=== PATIENT | female | born 1970 | race Caucasian/White ===

== ENCOUNTER 2017-11-29 16:05 | Observation (INO) | payer MEDICARE, MEDICAID ==
[2017-11-29 16:14] VITALS: TEMP 98.6
--- NOTE | 2017-11-29 16:38 | ED PDOC ---
HPI: Hypertension/Hypotension Time Seen by Provider: 11/29/17 16:18 Chief Complaint (Nursing): High Blood Pressure Chief Complaint (Provider): Elevated BP History Per: Patient History/Exam Limitations: no limitations Additional Complaint(s): Pt was sent by Sheet Folder for elevated BP (278/140) at office, associated with WRIGHT and nausea. Pt reports bilateral WRIGHT X 3 weeks, now constant, not relieved with OTC WRIGHT meds. Pt take Metoprolol 100 mg PO daily for HTN, noncompliant with Enalapril. Denies paresthesias, weakness, visual changes, neck stiffness, CP, SOB, vomiting, abdominal pain. Against Medical Advice - AMA Patient Left Against Medical Advice: The patient declines admission to the hospital and wishes to leave the Emergency Department. This action is against my medical advice. This decision was made with informed refusal. The patient was told that admission to the hospital is necessary. Explanation of the reasons why were discussed. The risks of leaving were explained to the patient and include, but are not limited to, worsening of known or currently unknown conditions, permanent disability and from undiagnosed or untreated conditions. The patient has the capacity to make this informed decision and understands my explanation of the current medical problem and risks of leaving. The patient voluntarily accepts these risks and signed an AMA form documenting our conversation. The patient was given the opportunity to ask questions and reconsider. The patient was encouraged to return to the Emergency Department at any time for further care. Past Medical History Reviewed: Nursing Documentation, Vital Signs Vital Signs: Last Vital Signs Temp 98.6 F 11/29/17 16:07 Pulse 74 11/29/17 16:07 Resp 18 11/29/17 16:07 BP 238/135 H 11/29/17 16:07 Pulse Ox 98 11/29/17 16:07 - Medical History PMH: Anxiety, Depression, Diabetes, HTN, Hypercholesterolemia, Chronic Kidney Disease, Schizophrenia - Surgical History Surgical History: Tonsillectomy - Family History Family History: States: Unknown Family Hx - Social History Current smoker - smoking cessation education provided: No Alcohol: None - Immunization History Hx Tetanus Toxoid Vaccination: No Hx Influenza Vaccination: Yes Hx Pneumococcal Vaccination: No - Home Medications Home Medications: Ambulatory Orders Medication Instructions Recorded ARIPiprazole [Abilify] 2 mg PO DAILY 11/23/17 Alprazolam 0.5 mg PO BID 11/23/17 Benztropine Mesylate 1 mg PO DAILY 11/23/17 Olanzapine [Zyprexa] 15 mg PO HS 11/23/17 Sertraline HCl 100 mg PO DAILY 11/23/17 Enalapril Maleate [Vasotec] 20 mg PO DAILY 11/29/17 Metoprolol Succinate XL [Toprol XL] 100 mg PO DAILY 11/29/17 hydrALAZINE [Apresoline] 25 mg PO Q8 11/29/17 - Allergies Allergies/Adverse Reactions: Allergies Allergy/AdvReac Type Severity Reaction Status Date / Time tetracycline Allergy SHORTNESS Verified 11/23/17 19:58 OF BREATH Review of Systems Constitutional: Negative for: Fever, Chills Eyes: Negative for: Pain, Vision Change Cardiovascular: Negative for: Chest Pain, Palpitations Respiratory: Negative for: Cough, Shortness of Breath Gastrointestinal: Positive for: Nausea. Negative for: Vomiting, Abdominal Pain , Diarrhea Genitourinary Female: Negative for: Dysuria, Hematuria Musculoskeletal: Negative for: Neck Pain, Back Pain Skin: Negative for: Rash, Lesions Neurological: Positive for: Headache. Negative for: Weakness, Numbness, Incoordination, Change in Speech, Confusion, Seizures, Altered Mental Status, Dizziness Physical Exam - Reviewed Nursing Documentation Reviewed: Yes Vital Signs Reviewed: Yes - Physical Exam Appears: Positive for: Well, No Acute Distress Head Exam: Positive for: ATRAUMATIC, NORMAL INSPECTION Skin: Positive for: Normal Color, Warm, Dry Eye Exam: Positive for: Normal appearance, EOMI, PERRL Neck: Positive for: Normal, Painless ROM, Supple Cardiovascular/Chest: Positive for: Regular Rate, Rhythm Respiratory: Positive for: Normal Breath Sounds Gastrointestinal/Abdominal: Positive for: Normal Exam, Bowel Sounds, Soft. Negative for: Tenderness Back: Positive for: Normal Inspection. Negative for: L CVA Tenderness, R CVA Tenderness Extremity: Positive for: Normal ROM. Negative for: Swelling Neurologic/Psych: Positive for: Alert, director of content marketing II-XII, Oriented. Negative for: Motor/Sensory Deficits, Aphasia, Facial Droop - Laboratory Results Result Diagrams: 11/29/17 16:41 11/29/17 16:41 - ECG Interpretation Of ECG: NSR @ 61, LVH, no ST-T changes. O2 Sat by Pulse Oximetry: 98 Pulse Ox Interpretation: Normal - Progress Re-evaluation Time: 20:30 Condition: Improving,but remains with symptoms Medical Decision Making Medical Decision Makin yoi female with elevated BP and headache. - labs - EKG - CXR - CT head - Morphine Accession No. : [id number] Patient Name / ID : WILDER ALVAREZ / [id number] Exam Date : 11/29/2017 17:36:35 ( Approved ) Study Comment : Sex / Age : F / 47Y Creator : alla garcia Dictator : Viraj Castillo MD Mac Artist : Shampoo Technician : Viraj Castillo MD Approver2 : Report Date : 11/29/2017 17:56:56 My Comment : Date of service: 11/29/2017 HISTORY: Elevated BP COMPARISON: 11/28/2013 TECHNIQUE: Chest PA and lateral FINDINGS: LUNGS: No active pulmonary disease. PLEURA: No significant pleural effusion identified. No pneumothorax apparent. CARDIOVASCULAR: No radiographic findings to suggest acute or significant cardiovascular disease. OSSEOUS STRUCTURES: No significant abnormalities. VISUALIZED UPPER ABDOMEN: Normal. OTHER FINDINGS: None. IMPRESSION: No active disease. No significant interval change compared to the prior examination(s). Accession No. : [id number] Patient Name / ID : WILDER ALVAREZ / [id number] Exam Date : 11/29/2017 18:00:01 ( Approved ) Study Comment : Sex / Age : F / 47Y Creator : Viraj Castillo MD Dictator : Viraj Castillo MD Mac Artist : Shampoo Technician : Viraj Castillo MD Approver2 : Report Date : 11/29/2017 18:21:38 My Comment : Date of service: 11/29/2017 PROCEDURE: CT HEAD WITHOUT CONTRAST. HISTORY: WRIGHT COMPARISON: None available. TECHNIQUE: Axial computed tomography images were obtained through the head/brain without intravenous contrast. Coronal and sagittal reconstructed images. Nvn Radiation dose: Total exam DLP = 817.72 mGy-cm. This CT exam was performed using one or more of the following dose reduction techniques: Automated exposure control, adjustment of the mA and/or kV according to patient size, and/or use of iterative reconstruction technique. FINDINGS: HEMORRHAGE: No intracranial hemorrhage. BRAIN: No mass effect or edema. No atrophy or chronic microvascular ischemic changes. VENTRICLES: Unremarkable. No hydrocephalus. CALVARIUM: Unremarkable. PARANASAL SINUSES: Unremarkable as visualized. No significant inflammatory changes. MASTOID AIR CELLS: Unremarkable as visualized. No inflammatory changes. OTHER FINDINGS: None. IMPRESSION: No acute intracranial abnormalities. No significant findings to account for the clinical presentation. 2045 --Patient is signing out against medical advice because she reports needing to go home to her child. Disposition - Clinical Impression Clinical Impression: Uncontrolled hypertension - Patient ED Disposition Is Patient to be Admitted: No - Disposition Disposition: Against Medical Advice Disposition Time: 20:45 Condition: UNKNOWN
[2017-11-29 17:18] LABS: ALB/GLOB RATIO 1.2 (1.0-2.1); ALBUMIN 3.8 g/dL (3.5-5.0); CALCIUM 9.5 mg/dL (8.4-10.2)
[2017-11-29 17:20] LABS: BASO # 0.1 K/uL (0.0-0.2); BASO % 0.7 % (0.0-2.0); EOS # 0.3 K/uL (0.0-0.7); EOS % 3.1 % (0.0-4.0); HEMOGLOBIN 13.1 g/dL (12.0-16.0); LYMPH # 1.8 K/uL (1.0-4.3); LYMPH % 21.6 % (20.0-40.0); MEAN CELL VOLUME 82.8 fl (81.0-99.0); MEAN CORPUSCULAR HEMOGLOBIN 28.2 pg (27.0-31.0); MEAN CORPUSCULAR HGB CONC 34.1 g/dL (33.0-37.0); MEAN PLATELET VOLUME 8.3 fl (7.2-11.7); MONO # 0.5 K/uL (0.0-0.8); MONO % 5.6 % (0.0-10.0); NEUT # 5.7 K/uL (1.8-7.0); NRBC % 0.1 % (0.0-0.0); RBC 4.65 Mil/uL (3.80-5.20); RED CELL DISTRIBUTION WIDTH 15.3 % (11.5-14.5); WHITE BLOOD COUNT 8.3 K/uL (4.8-10.8)
[2017-11-29 17:26] LABS: INR 0.8 (0.9-1.2); PARTIAL THROMBOPLASTIN TIME 33.1 Seconds (25.6-37.1); PROTHROMBIN TIME 8.7 Seconds (9.8-13.1)
[2017-11-29 18:03] LABS: SQUAMOUS EPITHIAL < 1 /hpf (0-5); URINE BILIRUBIN NEGATIVE (NEGATIVE); URINE BLOOD NEGATIVE (NEGATIVE); URINE CLARITY SLIGHTY-CLOUDY (Clear); URINE COLOR STRAW (YELLOW); URINE GLUCOSE (UA) 50 mg/dL (Normal); URINE LEUKOCYTE ESTERASE NEG Leu/uL (Negative); URINE UROBILINOGEN 0.2-1.0 mg/dL (0.2-1.0)
--- NOTE | 2017-11-29 18:13 | RAD ---
Date of service: 11/29/2017 HISTORY: Elevated BP COMPARISON: 11/28/2013 TECHNIQUE: Chest PA and lateral FINDINGS: LUNGS: No active pulmonary disease. PLEURA: No significant pleural effusion identified. No pneumothorax apparent. CARDIOVASCULAR: No radiographic findings to suggest acute or significant cardiovascular disease. OSSEOUS STRUCTURES: No significant abnormalities. VISUALIZED UPPER ABDOMEN: Normal. OTHER FINDINGS: None. IMPRESSION: No active disease. No significant interval change compared to the prior examination(s).
[2017-11-29 18:16] LABS: URINE PROTEIN >=300 mg/dL (NEGATIVE)
--- NOTE | 2017-11-29 18:23 | CT ---
Date of service: 11/29/2017 PROCEDURE: CT HEAD WITHOUT CONTRAST. HISTORY: WRIGHT COMPARISON: None available. TECHNIQUE: Axial computed tomography images were obtained through the head/brain without intravenous contrast. Coronal and sagittal reconstructed images. Nmn Radiation dose: Total exam DLP = 817.72 mGy-cm. This CT exam was performed using one or more of the following dose reduction techniques: Automated exposure control, adjustment of the mA and/or kV according to patient size, and/or use of iterative reconstruction technique. FINDINGS: HEMORRHAGE: No intracranial hemorrhage. BRAIN: No mass effect or edema. No atrophy or chronic microvascular ischemic changes. VENTRICLES: Unremarkable. No hydrocephalus. CALVARIUM: Unremarkable. PARANASAL SINUSES: Unremarkable as visualized. No significant inflammatory changes. MASTOID AIR CELLS: Unremarkable as visualized. No inflammatory changes. OTHER FINDINGS: None. IMPRESSION: No acute intracranial abnormalities. No significant findings to account for the clinical presentation.
[2017-11-29 20:06] VITALS: BP 186/90; PULSE 52; RESP 16
[2017-11-29 20:50] VITALS: O2SAT 98
--- NOTE | 2017-11-30 09:16 | CARD ---
APPROVED REPORT Date of service: 11/29/2017 EKG Measurement Heart [id number] [id number] [id number] <Conclusion> Normal sinus rhythm Voltage criteria for left ventricular hypertrophy Abnormal ECG
== END 2017-11-29 21:33 | disposition left against medical advice (07) ==
LOC: H.ER 16:05 → H.ERHOLD 20:41
PROVIDERS: ADMIT Internal Medicine; ATTEND Internal Medicine
DX: I12.9 Hypertensive chronic kidney disease with stage 1 through stage 4 chronic kidney disease, or unspecified chronic kidney disease (principal); R51 Headache; N18.9 Chronic kidney disease, unspecified; E11.22 Type 2 diabetes mellitus with diabetic chronic kidney disease; E78.00 Pure hypercholesterolemia, unspecified; F20.9 Schizophrenia, unspecified; F41.9 Anxiety disorder, unspecified; Z91.19 Patient's noncompliance with other medical treatment and regimen; Z79.899 Other long term (current) drug therapy
CPT/HCPCS: 70450; 71046; 80053; 81003; 81025; 82948; 85025; 85610; 85730; 93005; 96374; 99285; G0378; J2270

== ENCOUNTER 2018-01-26 07:56 | Emergency (ER) | payer MEDICARE, MEDICAID ==
[2018-01-26 08:00] VITALS: BMI 26.5
[2018-01-26 08:02] VITALS: O2SAT 99
[2018-01-26 09:23] LABS: BASO # 0.1 K/uL (0.0-0.2); BASO % 1.1 % (0.0-2.0); EOS # 0.1 K/uL (0.0-0.7); EOS % 1.7 % (0.0-4.0); HEMOGLOBIN 11.4 g/dL (12.0-16.0); LYMPH # 1.5 K/uL (1.0-4.3); LYMPH % 17.8 % (20.0-40.0); MEAN CELL VOLUME 83.8 fl (81.0-99.0); MEAN CORPUSCULAR HEMOGLOBIN 28.9 pg (27.0-31.0); MEAN CORPUSCULAR HGB CONC 34.5 g/dL (33.0-37.0); MEAN PLATELET VOLUME 8.5 fl (7.2-11.7); MONO # 0.5 K/uL (0.0-0.8); NEUT # 6.3 K/uL (1.8-7.0); NEUT % 73.4 % (50.0-75.0); NRBC % 0.1 % (0.0-0.0); RBC 3.95 Mil/uL (3.80-5.20); RED CELL DISTRIBUTION WIDTH 14.9 % (11.5-14.5); WHITE BLOOD COUNT 8.6 K/uL (4.8-10.8)
--- NOTE | 2018-01-26 09:25 | RAD ---
Date of service: 01/26/2018 HISTORY: pleuritic pain COMPARISON: 11/29/2017 TECHNIQUE: Chest PA and lateral FINDINGS: LUNGS: No interval consolidation. PLEURA: Although lung volume is slightly less now than before the costophrenic angles appear less deep bilaterally. Small bilateral pleural effusions are possible. Clinical history noted. No pneumothorax seen CARDIOVASCULAR: Top-normal heart size. Mild tortuosity of thoracic aorta both findings stable appearing OSSEOUS STRUCTURES: No significant abnormalities. VISUALIZED UPPER ABDOMEN: Normal. OTHER FINDINGS: None. IMPRESSION: Interval minimal bilateral pleural effusions-possible.
--- NOTE | 2018-01-26 09:40 | ED PDOC ---
HPI: Chest Pain Time Seen by Provider: 01/26/18 08:15 Chief Complaint (Nursing): Chest Pain Additional Complaint(s): 47 year old female, with a past medical history of high triglycerides, high cho lesterol, diabetes, hypertension, migraines, anxiety, depression, schizophrenia, and chronic kidney disease (stage 3), presenting for evaluation of chest pain x1 day. Patient describes pain as pressure-like and exacerbated by movement and inspiration. Patient reports taking Aspirin prior to arrival with some relief of symptoms. Patient otherwise denies any fever, chills, shortness of breath, nause a, or vomiting. Patient also reports a dry cough and headache. PMD: Dr. Hansel White Past Medical History Reviewed: Historical Data, Nursing Documentation, Vital Signs Vital Signs: Last Vital Signs Temp 98.2 F 01/26/18 08:01 Pulse 78 01/26/18 08:01 Resp 17 01/26/18 08:01 BP 180/76 H 01/26/18 08:32 Pulse Ox 99 01/26/18 10:00 - Medical History PMH: Anxiety, Depression, Diabetes, HTN, Hypercholesterolemia, Chronic Kidney Disease, Schizophrenia - Surgical History Surgical History: Tonsillectomy - Family History Family History: States: Unknown Family Hx - Immunization History Hx Tetanus Toxoid Vaccination: No Hx Influenza Vaccination: Yes Hx Pneumococcal Vaccination: No - Home Medications Home Medications: Ambulatory Orders Medication Instructions Recorded ARIPiprazole [Abilify] 2 mg PO DAILY 11/23/17 Alprazolam 0.5 mg PO BID 11/23/17 Benztropine Mesylate 1 mg PO DAILY 11/23/17 Olanzapine [Zyprexa] 15 mg PO HS 11/23/17 Sertraline HCl 100 mg PO DAILY 11/23/17 Enalapril Maleate [Vasotec] 20 mg PO DAILY 11/29/17 Metoprolol Succinate XL [Toprol XL] 100 mg PO DAILY 11/29/17 hydrALAZINE [Apresoline] 25 mg PO Q8 11/29/17 - Allergies Allergies/Adverse Reactions: Allergies Allergy/AdvReac Type Severity Reaction Status Date / Time tetracycline Allergy SHORTNESS Verified 11/23/17 19:58 OF BREATH Review of Systems ROS Statement: Except As Marked, All Systems Reviewed And Found Negative Constitutional: Negative for: Fever, Chills Cardiovascular: Positive for: Chest Pain Respiratory: Positive for: Cough. Negative for: Shortness of Breath Neurological: Positive for: Headache Physical Exam - Reviewed Nursing Documentation Reviewed: Yes Vital Signs Reviewed: Yes - Physical Exam Appears: Positive for: Well, Non-toxic, No Acute Distress Head Exam: Positive for: ATRAUMATIC, NORMAL INSPECTION, NORMOCEPHALIC Skin: Positive for: Normal Color, Warm, Dry. Negative for: Rash Eye Exam: Positive for: EOMI, Normal appearance, PERRL ENT: Positive for: Normal ENT Inspection Neck: Positive for: Normal, Painless ROM, Supple Cardiovascular/Chest: Positive for: Regular Rate, Rhythm. Negative for: Murmur Respiratory: Positive for: Normal Breath Sounds. Negative for: Respiratory Distress Gastrointestinal/Abdominal: Positive for: Normal Exam, Soft. Negative for: Tenderness Back: Positive for: Normal Inspection. Negative for: L CVA Tenderness, R CVA Tenderness, Vertebral Tenderness Extremity: Positive for: Normal ROM. Negative for: Deformity Neurologic/Psych: Positive for: Alert, Oriented. Negative for: Motor/Sensory Deficits - Laboratory Results Result Diagrams: 01/26/18 09:19 01/26/18 09:19 - ECG O2 Sat by Pulse Oximetry: 99 (RA) Pulse Ox Interpretation: Normal Medical Decision Making Medical Decision Makin Plan: -EKG -CMP -Troponin -Upreg -CBC -CXR -teletypesetter monitor -IV insertion -Reevaluation Scribe Attestation: Documented by Sanjay Santos, acting as a scribe for Kiana Freire MD. Provider Scribe Attestation: All medical record entries made by the Scribe were at my direction and personally dictated by me. I have reviewed the chart and agree that the record accurately reflects my personal performance of the history, physical exam, medical decision making, and the department course for this patient. I have also personally directed, reviewed, and agree with the discharge instructions and disposition. Disposition - Clinical Impression Clinical Impression: Atypical chest pain - Patient ED Disposition Is Patient to be Admitted: No Doctor Will See Patient In The: Office Counseled Patient/Family Regarding: Diagnosis, Need For Followup - Disposition Disposition Time: 10:30 Condition: STABLE Instructions: Chest Pain That Is Not Caused by the Heart (DC) Forms: [facility] (Turkmen) - POA Present On Arrival: None
[2018-01-26 09:42] LABS: ALBUMIN 3.2 g/dL (3.5-5.0); CALCIUM 8.8 mg/dL (8.4-10.2)
[2018-01-26 09:51] LABS: TROPONIN I 0.042 ng/mL (0.00-0.120)
[2018-01-26 11:30] VITALS: BP 146/78; PULSE 76; RESP 18; TEMP 98
--- NOTE | 2018-01-26 14:27 | CARD ---
APPROVED REPORT Date of service: 01/26/2018 EKG Measurement Heart [id number] <Conclusion> Normal sinus rhythm Voltage criteria for left ventricular hypertrophy Nonspecific ST abnormality Abnormal ECG
== END 2018-01-26 11:28 | disposition home or self-care (01) ==
LOC: H.ER 07:56
DX: R07.89 Other chest pain (principal)